=== PATIENT | male | born 1990 | race Caucasian/White ===

== ENCOUNTER 2019-07-20 07:56 | Emergency (ER) | payer SELFPAY ==
--- NOTE | 2019-07-20 08:47 | RAD ---
XR Knee Rt 4 View STANDARD History: Pain Comparison: None. Findings: No acute fracture or malalignment. No significant joint effusion. Impression: No acute osseous abnormality.
== END 2019-07-20 09:20 | disposition home or self-care (01) ==
LOC: MADERS 07:56
DX: S83.91XA Sprain of unspecified site of right knee, initial encounter (principal); E66.9 Obesity, unspecified; F17.210 Nicotine dependence, cigarettes, uncomplicated; F17.290 Nicotine dependence, other tobacco product, uncomplicated; X58.XXXA Exposure to other specified factors, initial encounter